=== PATIENT | female | born 1965 | race African-American/Black ===

== ENCOUNTER 2016-11-23 16:48 | Emergency (ER) | payer BC ==
[~2016-11-23] VITALS: Ht 167.6 cm; Wt 68.0 kg
[2016-11-23 22:50] VITALS: BP 120/75
== END 2016-11-23 22:50 | disposition home or self-care (01) ==
LOC: ER 18:05
DX: J40 Bronchitis, not specified as acute or chronic (principal); Z90.710 Acquired absence of both cervix and uterus
CPT/HCPCS: 71010; 81025; 99283; Z7610